=== PATIENT | male | born 1945 ===

== ENCOUNTER 2019-12-15 17:23 | Inpatient (IN) | payer MEDICARE, MEDICAID, OTHER ==
[~2019-12-15 17:23] MED LIST: Iopamidol-370 76% 500 ML 1 ML ONE
[2019-12-15 18:07] LABS: #Eosinphils 0.1 thou/uL (0.0-0.7); #Monocytes 0.5 thou/uL (0.11-0.59); #Neutrophils 9.5 thou/uL (1.40-6.50); %Basophils 0.2 % (0.0-1.0); %Eosinophils 0.6 % (0.0-10.0); %Lymphocytes 8.7 % (21.0-51.0); %Monocytes 4.8 % (0.0-10.0); %Neutrophils 85.9 % (42.0-75.0); Hemoglobin 9.5 g/dL (14.0-18.0); Mean Corpuscular HGB CONC 31.9 g/dL (32.0-36.0); Mean Corpuscular Hemoglobin 31.6 pg (27.0-31.0); Mean Corpuscular Volume 98.9 fL (78.0-98.0); Mean Platelet Volume 8.7 fL (7.4-10.4); Platelet Count 253 thou/uL (130-400); RBC Distribution Width 14.6 % (11.5-14.5); Red Blood Cell (RBC) Count 3.01 mill/uL (4.70-6.10); White Blood Cell (WBC) Count 11.1 thou/uL (4.8-10.8)
[2019-12-15] MEDS ORDERED: Cefepime 2 GM VIAL ONE (18:12)
[2019-12-15] MEDS ORDERED: Vancomycin 1 GM/200 ML BAG ONE (18:12)
[2019-12-15 18:45] LABS: PTT 190.9 SEC (22.9-36.1); Prothrombin Time Greater than 150.0 SEC (12.0-14.7)
[2019-12-15 18:55] LABS: CKMB 0.8 ng/mL (0-6.6)
[2019-12-15] MEDS ORDERED: ADMIXTURE FEE IV SCH ×2 (19:30→22:00)
[2019-12-15] MEDS ORDERED: HUMAN PROTHROMBIN COMPLX IV SCH ×2 (19:30→22:00)
--- NOTE | 2019-12-15 19:30 | RAD ---
SINGLE VIEW OF THE CHEST: 12/15/19 COMPARISON: None. HISTORY: Left arm swelling. Dialysis graft in that arm. FINDINGS: Single view of the chest shows the cardiomediastinal silhouette which is upper limits of normal in si ze. A triple lead pacemaker is seen with its leads in the right atrium and right ventricle and arciniega ry sinus. Opacity is seen in the right lung apex which may represent scarring or collapse of the righ t upper lobe. There is volume loss in this location. Increased interstitial lung markings are present . No pleural effusion is seen. Changes are seen involving the bone of the proximal aspect of the left humerus which are nonspecific. An underlying fracture cannot be entirely excluded. IMPRESSION: 1. Chronic interstitial lung disease. 2. Right upper lobe opacification may represent scarring or atelectasis. A superimposed infiltra te cannot be excluded. 3. Abnormal appearance of the proximal left humerus. This may represent correction dialysis rojas es. An underlying fracture is also a possibility. Correlate with point tenderness of the left shoulde r. POS: [facility]
--- NOTE | 2019-12-15 19:30 | ULT ---
ULTRASOUND DOPPLER DUPLEX VENOUS LEFT UPPER EXTREMITY: DATE: 12/15/2019 HISTORY: 74-year-old male with left upper extremity edema TECHNIQUE: Grayscale, color-flow, and spectral analysis, of the vessels of left upper extremity. FINDINGS: There is demonstration of blood flow, with no evidence of thrombosis of the left internal jugular, nava bclavian, axillary, brachial, basilic, radial, and ulnar, veins. Brachial, radial, and ulnar arteries are patent. The anastomosis between the brachial artery and cephalic vein is patent. Cephali c vein and subclavian vein are dilated, as expected. IMPRESSION: Left upper extremity hemodialysis arteriovenous fistula is patent, no evidence of thrombosis.
[2019-12-15 19:32] LABS: ALT (SGPT) 16 U/L (8-55); AST (SGOT) 25 U/L (5-34); Albumin 3.1 g/dL (3.4-4.8); Alkaline Phosphatase 520 U/L (40-110); Anion Gap 23 mmol/L (10-20); BUN (Urea Nitrogen) 46 mg/dL (8.4-25.7); Bilirubin, Total 1.5 mg/dL (0.2-1.2); Calc. Creatinine Clearance 0 mL/min (70-130); Calcium 9.3 mg/dL (7.8-10.44); Carbon Dioxide 28 mmol/L (23-31); Chloride 87 mmol/L (98-107); Estimated GFR-MDRD 9; Globulin 4.5 g/dL (2.4-3.5); Glucose 352 mg/dL (83-110); Protein, Total 7.6 g/dL (5.8-8.1); Sodium 134 mmol/L (136-145)
[2019-12-15] MEDS ORDERED: Ketamine 50 MG/ML (10ML VIAL) ONE (19:54)
[2019-12-15] MEDS ORDERED: Vecuronium 10 MG VIAL ONE (19:54)
[2019-12-15 20:06] LABS: Bilirubin Small (Negative); Blood, Urine Large (Negative); Glucose, Urine (Dipstick) Negative (Negative); Leukocyte Large (Negative); Nitrite Negative (Negative); Protein, Urine (Dipstick) > or equal to 300 mg/dL (Neg-Trace); Urobilinogen 0.2 mg/dL (Less than 2)
[2019-12-15 20:08] LABS: Clarity Turbid (Clear)
[2019-12-15 20:11] LABS: WBC/HPF Greater Than 50 HPF (0-3)
[2019-12-15 20:12] LABS: Bacteria/HPF 4+ HPF (None Seen); Squamous Epithelial None Seen HPF (0-3)
[2019-12-15] MEDS ORDERED: Propofol 1,000 MG/100 ML VIAL IV ONE ×2 (20:18→20:32)
[2019-12-15] MEDS ORDERED: Propofol 1,000 MG/100 ML VIAL IV PRN ×2 (20:22→21:13)
[2019-12-15] MEDS ORDERED: fentaNYL Citrate/PF 2,000 MCG in Sodium Chloride 0.9% 60 ML IV SCH (20:23)
[2019-12-15] MEDS ORDERED: Propofol 500 MG/50 ML VIAL ONE (20:31)
--- NOTE | 2019-12-15 20:41 | RAD ---
RADIOGRAPH CHEST 1 VIEW: DATE: 12/15/2019 TIME: 8:00 PM HISTORY: 74-year-old male status post intubation COMPARISON: 12/15/2019 6:41 PM FINDINGS: New ETT, distal tip 2.5 similar superior to jonny. New tube traveling down the esophagus and into left upper quadrant, distal tip outside of field of vi ew. No other interval change. Dense severe opacification of right lung apex, with traction deviation of trachea to the right indica ting volume loss of right apex. Diffuse bilateral nodular interstitial infiltrates. Multilead left subclavian AICD. IMPRESSION: 1. Status post intubation with endotracheal tube. 2. Status post placement of esophagogastric tube. 3. No other interval change.
[2019-12-15] MEDS ORDERED: Ventilator Sedation Protocol 1 EACH FS ONE (20:57)
[2019-12-15] MEDS ORDERED: Acetaminophen 325 MG Suppository PR PRN (20:57)
[2019-12-15] MEDS ORDERED: Sodium Chloride 0.9% 1,000 ML IV SCH (21:00)
[2019-12-15] MEDS ORDERED: Ventilator Sedation Protocol 1 EACH FS SCH (21:00)
[2019-12-15 21:01] LABS: INR-International Normal Ratio 2.7; Prothrombin Time 28.6 SEC (12.0-14.7)
[2019-12-15] MEDS ORDERED: Propofol BOLUS 1,000 MG/100 ML VIAL IV PRN (21:13)
[2019-12-15] MEDS ORDERED: Lorazepam 2 MG/ML VIAL SLOW IVP PRN (21:13)
[2019-12-15] MEDS ORDERED: Fentanyl BOLUS 250 ML IVPB PRN (21:13)
[2019-12-15] MEDS ORDERED: DISCONTINUE PREVIOUS NARCOTIC PAIN MEDICATIONS AND BENZODIAZEPINES FS SCH (21:13)
[2019-12-15] MEDS ORDERED: Morphine 2 MG/ML SYRINGE SLOW IVP PRN (21:13)
[2019-12-15] MEDS ORDERED: HOLD VANCOMYCIN FOR LEVEL >20 FS SCH (21:30)
[2019-12-15] MEDS ORDERED: Vancomycin HCl 250 MG in Sodium Chloride 0.9% 100 ML IVPB SCH (21:30)
[2019-12-15] MEDS ORDERED: Vancomycin HCl 750 MG in Sodium Chloride 0.9% 250 ML 250 ML IVPB SCH (21:30)
[2019-12-15] MEDS ORDERED: Vancomycin HCl 500 MG in Sodium Chloride 0.9% 100 ML IVPB SCH (21:30)
[2019-12-15] MEDS ORDERED: Vancomycin 1 GM in Premix Bag 1 BAG IVPB SCH (21:30)
[2019-12-15] MEDS ORDERED: Phytonadione 10 MG/ML AMP ONE (21:42)
--- NOTE | 2019-12-15 21:44 | CON ---
DATE OF CONSULTATION: 12/15/2019 CONSULTING PHYSICIAN: Dr. Street from ER. REASON FOR CONSULTATION: End-stage renal disease evaluation. REASON FOR ADMISSION: Fever. HISTORY OF PRESENT ILLNESS: This is a 74-year-old male with history of end-stage renal disease, coronary artery disease, diabetes, and hypertension, came to the hospital with the above complaints and is being evaluated and being admitted to the hospital. He was actually intubated in the ER because of the aspiration and shortness of breath. The patient had fever and was seen in the hospital. The patient gets dialysis Friday, , and Friday at [facility] and is due for dialysis tomorrow. PAST MEDICAL HISTORY: Positive for end-stage renal disease, diabetes, hyperlipidemia, hypertension, cardiomyopathy, and coronary artery disease. PAST SURGICAL HISTORY: Dialysis access placement, right knee surgery, AICD and fistula placement. HOME MEDICATIONS: Reviewed. ALLERGIES: NO KNOWN DRUG ALLERGIES. SOCIAL HISTORY: No alcohol or illicit drug abuse. No smoking history. FAMILY HISTORY: No history of kidney disease. REVIEW OF SYSTEMS: Could not be obtained. PHYSICAL EXAMINATION: GENERAL: Reveals a well-built male, intubated. VITAL SIGNS: Reviewed. LABORATORY DATA: Hemoglobin is 9.5, potassium 4.0, BUN is 46, and creatinine is 6.08. Chest x-ray with signs of fluid overload and respiratory distress. ASSESSMENT AND PLAN: 1. End-stage renal disease with possible fluid overload. He is on hemodialysis TTS schedule. 2. Edema. 3. Fluid overload with respiratory distress. 4. History of hypertension. 5. Hyponatremia. 6. Chronic anemia. 7. IC bleed with herniation - high risk for dialysis. Thank you for the consult. Job ID: [id number] [facility]
--- NOTE | 2019-12-15 21:45 | CT ---
CT BRAIN NONCONTRAST: DATE: 12/15/2019 9:26 PM HISTORY: 74-year-old male on anticoagulation therapy medication presents with altered mental status and genera lized weakness. Dr. Walsh discussed the findings by telephone with Dr. Street at 9:37 PM 12/15/2019 COMPARISON: none FINDINGS: There is a large multiloculated left frontotemporal parietal subdural hematoma with hyperdense and hy podense components. There is a large amount of subarachnoid hemorrhage throughout left cerebral sulci. There is a large left temporal lobe hematoma measuring approximately 5 x 3.5 cm. The anterior half of it is hypodense, suggesting possible hyperacute hemorrhage, while the posterior portion is hyperdense. Severe right to left midline shift of the septum pellucidum by 17 mm. Lateral ventricles bilaterally are severely distorted and narrowed, except for the body of the right lateral ventricle and the bilateral temporal horns, which are dilated. Third ventricle is completely effaced. Fourth ventricle is normal. Ambient cistern is completely effaced. Bilateral uncal herniation, left worse than right. Prepontine cistern is partially effaced. No cerebe llar tonsillar herniation. No displaced calvarial fracture. IMPRESSION: 1. Large volumes of, acute left supratentorial subdural, subarachnoid, and intra-axial (parenchymal) hemorrhage. 2. Severe mass effect: Severe subfalcine herniation, and bilateral uncal herniation.
--- NOTE | 2019-12-15 22:10 | HP ---
CT Brain: Massive intracranial Bleed Seen by neurosurgery, Inoperable,, terminal Neurosurgery will discuss with family CHIEF COMPLAINT: Fever and left arm swelling. HISTORY OF PRESENT ILLNESS: Mr. Maurice is a 74-year-old male with past medical history of end-stage renal disease on hemodialysis Friday, , and Friday. Had dialysis on 12/14/2019, presents to the emergency room with generalized weakness, has been progressing over the last week. The patient has been feeling increasingly weak to the point that he is not able to walk. No reported sick contacts. The patient lives with his spouse and grandson. 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 He also initially reported mild dyspnea without cough. Apparently, this happened approximately eight months ago when the patient was seen at [facility] and diagnosed with some problem with the pacemaker wires. The grandson reported that the patient takes blood thinner warfarin. Workup in the emergency room initially, the patient had fever of 101.1. INR was more than 150. While in the emergency room, the patient started vomiting and became hypoxic and in respiratory distress, the reason for which patient was intubated and mechanically ventilated. Currently, patient is going for CT of the brain and abdomen, results are not available. Lab work; the patient was found to have urinary tract infection. Venous Doppler of the left upper extremity, arteriovenous fistula is patent. No evidence of thrombosis. Lactic acid initially was 4.2. WBC count is 11.1. Hemoglobin 9.5. Platelets 253. Septic workup done in the ED. Started on IV antibiotics for possible cellulitis of the left upper extremity and also urinary tract infection. ED physician consulted with patient's farm demonstrator, who they can arrange for hemodialysis. The patient is being admitted to the intensive care unit for further management. Also as per ER physician, viral panel was sent including COVID-19 because of fever and sepsis. PAST MEDICAL HISTORY: Significant for; 1. End-stage renal disease, on hemodialysis. 2. Diabetes mellitus, type 2. 3. Hyperlipidemia. 4. Hypertension. PAST SURGICAL HISTORY: Unable to obtain. The patient is intubated and mechanically ventilated. SOCIAL HISTORY: As per records. No history of alcohol abuse or drug use. No smoking history. ALLERGIES: NO KNOWN ALLERGIES. CURRENT MEDICATIONS: Include warfarin. For details, please see home medication reconciliation form for updated medications. REVIEW OF SYSTEMS: Unable to obtain. The patient is intubated, mechanically ventilated, and sedated. PHYSICAL EXAMINATION: GENERAL: The patient is intubated, mechanically ventilated, and sedated. VITAL SIGNS: Blood pressure 129/64, pulse is 69, respiratory rate is 16, oxygen saturation is 98% on ventilator, temperature was 101.1. HEAD AND NECK: Normocephalic, atraumatic. NECK: Supple. CHEST: Coarse bilateral breath sounds. HEART: S1, S2. Regular, positive for murmur. ABDOMEN: Soft, nontender. Bowel sounds present. EXTREMITIES: Left upper extremity is edematous, diffusely warm and erythematous. Radial pulse is palpable. NEURO: Unable to assess. The patient is intubated, mechanically ventilated. SKIN: Erythema to the left arm as described above. LABORATORY DATA: As mentioned above in the history of present illness. IMAGING STUDIES: As mentioned above in the history of present illness. ASSESSMENT: 1. Acute hypoxic respiratory failure. 2. Pneumonia? aspiration. 3. Sepsis. 4. Cellulitis of left upper extremity. 5. Coagulopathy/supratherapeutic INR. 6. End-stage renal disease, on hemodialysis. 7. Acute urinary tract infection. 8. Detectable troponin. 9. Diabetes mellitus, type 2. CT Brain: Massive intracranial Bleed Seen by neurosurgery, Inoperable,, terminal Neurosurgery will discuss with family PLAN: 1. Admit to the ICU. 2. Continue full ventilator support. 3. CT of the brain and abdomen being done to follow the results. 4. Septic workup including blood cultures, viral panel and COVID-19 testing were done in the ED. 5. IV antibiotics. Continue with cefepime and vancomycin for now. 6. Sister Superior consulted for need for hemodialysis. 7. The patient was given Kcentra in the ED for elevated INR. 8. Consult Pulmonary/Critical Care for critical care management. 9. Reconcile home medications. 10. DVT prophylaxis as appropriate. 11. GI prophylaxis. 12. Expected length of stay 3 midnights or more. 13. Patient's condition is critical. CT Brain: Massive intracranial Bleed Seen by neurosurgery, Inoperable,, terminal Neurosurgery will discuss with family Job ID: [id number] [facility]
--- NOTE | 2019-12-15 22:33 | CT ---
CT ABDOMEN WITH CONTRAST CT PELVIS WITH CONTRAST: DATE: 12/15/2019 9:30 PM HISTORY: 74-year-old male on anticoagulation therapy presents with abdominal pain and severely elevated INR. C oncern for intra-abdominal or intrapelvic hemorrhage. COMPARISON: None TECHNIQUE: IV injection of iodinated contrast media: administered. Oral contrast media:Not administered FINDINGS: Kidneys are bilaterally very atrophic. No hydronephrosis. Small bilateral pleural effusions. Airspace density at posterior base of right lower lobe abutting the pleural effusion could represent atelectasis, or aspiration pneumonia. Interstitial changes throughout the bilateral lung bases probab ly represent mild pulmonary interstitial edema. Edema throughout the subcutaneous fat circumferentially around the abdominal cavity and pelvis Diffuse mural thickening and mural edema of the gallbladder. No intrahepatic biliary ductal dilation or obvious mass within the liver. Esophagogastric tube distal tip in proximal stomach. No retroperitoneal hematoma. Small amount of free fluid around the inferior portion of right lobe of liver and small to moderate amount of free fluid within pelvic cavity. Amaya catheter within collapsed urinary bladder with thick toure. Extensive atherosclerotic calcific aeration of most arteries. No small bowel dilation. Unremarkable spleen, pancreas, and adrenals. Retrocecal appendix is probably not inflamed primarily. Mild edema throughout the mesentery. No pneumoperitoneum. IMPRESSION: 1. No retroperitoneal or intrapelvic hematoma. 2. Small volume of ascites. 3. Anasarca. 4. Small bilateral pleural effusions. 5. Right lower lobe pulmonary densities could represent aspiration pneumonitis. 6. Evidence for chronic renal failure: Renal atrophy. 7. Diffuse mural thickening and mural edema of the gallbladder. Possible etiologies include secondary involvement due to liver disease, versus acute cholecystitis.
--- NOTE | 2019-12-16 00:12 | CON ---
DATE OF CONSULTATION: 12/15/2019 This was a 50-minute initial consult visit in which greater than 50% of the time was spent in review of records, imaging, evaluation, examination, and formulation of plan. The remaining time was spent in counseling and coordination of care. CHIEF COMPLAINT: Altered mental status with left-sided brain hemorrhage. HISTORY OF PRESENT ILLNESS: Mr. Maurice is a 74-year-old male who presented to the emergency department earlier this evening. All history was obtained from the ER physician, Dr. Street, as the patient was intubated on a ventilator and unresponsive upon my arrival to the ER for evaluation. Per report , the patient presented with generalized weakness that has been worsening over the last several days. The patient no longer able to ambulate due to this weakness. The patient was reported to initially be answering questions appropriately in [place] Translation was provided by his grandson, who reported that at times the patient was unable to be understood due to garbled speech. However, most of the time, speech was understandable and inappropriate. The patient did appear somnolent, but was easily awakened. As the evening progressed, the patient had an episode of vomiting and became hypoxic with respiratory distress, suspicion for aspiration. The patient was intubated and placed on ventilator. The patient was then taken for a CT of the brain, which unfortunately revealed a massive left- sided hemorrhage with severe mass effect with [id number] midline shift and uncal herniation. PAST MEDICAL HISTORY: Pertinent for end-stage renal disease, on hemodialysis. Last dialysis on 12/14/2019 (yesterday). On initial coags, INR was unable to be calculated, and PT was greater than 150. The patient received Kcentra, and second set of coags revealed INR 2.7 and PT of 28.6. There is concern for sepsis, as the patient has left arm cellulitis. White blood cell count 11.1. Urinalysis consistent with urinary tract infection with large amount of leukocyte esterase, greater than 50 urine white blood cells, and 4+ urine bacteria. The patient was started on IV antibiotics. Additional medical history is significant for type 2 diabetes mellitus, hyperlipidemia, and hypertension. PHYSICAL EXAMINATION: The patient is intubated on a ventilator and sedated. GCS of 3t upon my arrival for examination. Pupils are in mid position, dilated, and nonreactive. 0/5 strength throughout all extremities, flaccid and no withdrawal to painful stimulus. There is left upper extremity swelling present with warmth and erythema. IMPRESSION: 1. Massive left-sided brain hemorrhage, including left supratentorial subdural hematoma, subarachnoid hematoma, and intraparenchymal hemorrhage with significant mass effect and uncal herniation. 2. Acute hypoxic respiratory failure. 3. Sepsis. 4. Cellulitis of left upper extremity. 5. Coagulopathy/supratherapeutic INR. 6. End-stage renal disease, on hemodialysis. 7. Acute urinary tract infection. 8. Diabetes mellitus type 2. 9. Hyperlipidemia. 10. Hypertension. PLAN: Case was discussed and imaging reviewed with Dr. Guerrero. CT of his brain is significant for massive left-sided brain hemorrhage of multiple types including multiloculated left frontotemporal parietal subdural hematoma with hyperdense and hypodense components, large subarachnoid hemorrhage, large left temporal lobe intraparenchymal hematoma. There is presence of signs which is suggestive of hyperacute bleeding at the time of CT completed. There is severe left to right midline shift measuring approximately 17 mm. There is bilateral uncal herniation present, left greater than right. Given these unfortunate findings on imaging, at this time the patient's intracranial hemorrhage is nonsurvivable and no surgery is recommended at this time. This is reinforced given the patient's coagulopathy, advanced age, and multiple medical comorbidities that make this inoperable that will unfortunately be fatal for this patient. The patient's family is currently on their way to the hospital at this time. I will discuss the finding with them upon their arrival and explain that no surgery will be pursued. The patient has been admitted to the critical care unit. Advised that he receive comfort care. Our team will continue to follow the patient while he remains in the hospital. Call Neurosurgery with any questions or concerns. Job ID: [id number] [facility]
[2019-12-16] MEDS ORDERED: Dextrose 5% in Water 1,000 ML IV PRN (00:30)
[2019-12-16] MEDS ORDERED: Dextrose 50% Abboject 50 ML SYRINGE SLOW IVP PRN (00:30)
[2019-12-16] MEDS ORDERED: HumaLOG 300 UNITS/3 ML VIAL SC PRN (00:30)
[2019-12-16 01:11] LABS: HBSAg Index 0.16 S/CO (0-0.99); Hep B Surf Ag Non-Reactive S/CO (NonReactive)
[2019-12-16 04:58] LABS: INR-International Normal Ratio 1.6; Prothrombin Time 19.2 SEC (12.0-14.7)
[2019-12-16 05:05] LABS: Band 9 % (5-11); Hemoglobin 8.3 g/dL (14.0-18.0); Lymphocytes 6 % (21-51); MDiff Complete? YES; Mean Corpuscular HGB CONC 33.4 g/dL (32.0-36.0); Mean Corpuscular Hemoglobin 32.3 pg (27.0-31.0); Mean Corpuscular Volume 96.8 fL (78.0-98.0); Mean Platelet Volume 9.9 fL (7.4-10.4); Monocytes 5 % (0-10); Neutrophil 80 % (42-75); Platelet Count 191 thou/uL (130-400); RBC Distribution Width 14.8 % (11.5-14.5); Red Blood Cell (RBC) Count 2.55 mill/uL (4.70-6.10); White Blood Cell (WBC) Count 15.1 thou/uL (4.8-10.8)
[2019-12-16] MEDS: HumaLOG 300 UNITS/3 ML VIAL SC PRN ×3 (06:09→18:10)
[2019-12-16 07:13] LABS: #Basophils 0.2 thou/uL (0.0-0.2); #Lymphocytes 0.4 thou/uL (1.20-3.40); #Monocytes 0.5 thou/uL (0.11-0.59); #Neutrophils 15.2 thou/uL (1.40-6.50); %Basophils 1.1 % (0.0-1.0); %Eosinophils 0.1 % (0.0-10.0); %Lymphocytes 2.6 % (21.0-51.0); %Monocytes 2.9 % (0.0-10.0); %Neutrophils 93.2 % (42.0-75.0); Hemoglobin 8.6 g/dL (14.0-18.0); Mean Corpuscular HGB CONC 33.2 g/dL (32.0-36.0); Mean Corpuscular Hemoglobin 32.1 pg (27.0-31.0); Mean Corpuscular Volume 96.6 fL (78.0-98.0); Mean Platelet Volume 8.8 fL (7.4-10.4); Platelet Count 199 thou/uL (130-400); RBC Distribution Width 14.5 % (11.5-14.5); Red Blood Cell (RBC) Count 2.67 mill/uL (4.70-6.10); White Blood Cell (WBC) Count 16.3 thou/uL (4.8-10.8)
[2019-12-16 07:36] LABS: ALT (SGPT) 12 U/L (8-55); AST (SGOT) 16 U/L (5-34); Albumin 2.6 g/dL (3.4-4.8); Alkaline Phosphatase 379 U/L (40-110); Anion Gap 18 mmol/L (10-20); BUN (Urea Nitrogen) 50 mg/dL (8.4-25.7); Bilirubin, Total 1.7 mg/dL (0.2-1.2); Calc. Creatinine Clearance 9 mL/min (70-130); Calcium 8.6 mg/dL (7.8-10.44); Carbon Dioxide 27 mmol/L (23-31); Chloride 89 mmol/L (98-107); Estimated GFR-MDRD 9; Globulin 3.9 g/dL (2.4-3.5); Glucose 333 mg/dL (83-110); Protein, Total 6.5 g/dL (5.8-8.1); Sodium 130 mmol/L (136-145)
[2019-12-16 08:31] LABS: Actual Bicarbonate (HCO3a) 31.6 mEq/L (22-28); Base Excess (BEa) 7.6 mEq/L (-2.0 to +3.0); CO2 Tension 41.9 mmHg (35.0-45.0); Calcium, Ionized 1.07 mmol/L (1.12-1.30); Carboxyhemoglobin (COHb) 1.6 gm% (0.0-3.0); Hemoglobin (Hb) 9.1 g/dL (14.0-18.0); O2 Tension (PaO2) 176.7 mmHg (> 70.0)
[2019-12-16 08:34] LABS: Puncture Site RB
[2019-12-16 08:35] LABS: ALV-art Gradient 127.425 (0-20)
--- NOTE | 2019-12-16 10:12 | CON ---
DATE OF CONSULTATION: 12/16/2019 TIME SPENT: 35 minutes of critical care time. REASON FOR CONSULTATION: Acute respiratory failure. HISTORY OF PRESENT ILLNESS: This is a 74-year-old male, who was admitted with fever, left arm swelling, and altered mental status. He has been found to have a large left-sided subdural hematoma with midline shift and has been deemed inoperable by Neurosurgery. Because of his fever, he was put in rule out COVID-19 status. Because of his altered mental status, he was intubated. PAST MEDICAL HISTORY: 1. He is an end-stage renal disease patient on 3 times weekly hemodialysis. 2. Diabetes mellitus, type 2. 3. Hyperlipidemia. 4. Hypertension. PAST SURGICAL HISTORY: Not known at the current time, but he does have a left upper arm AV fistula in place. SOCIAL HISTORY: Does not smoke. ALLERGIES: NONE. MEDICATIONS: Prior to admission; 1. Flomax. 2. Simvastatin. 3. Sevelamer. 4. Metoprolol. 5. Lisinopril. 6. Isosorbide. 7. Aspirin. 8. Warfarin was also mentioned in the history. Current inpatient medications; 1. Cefepime. 2. Famotidine. 3. Fentanyl. 4. Propofol. 5. Morphine. 6. Vancomycin. REVIEW OF SYSTEMS: Cannot be obtained as the patient is intubated. PHYSICAL EXAMINATION: VITAL SIGNS: Temperature is 97.0, pulse 70, and blood pressure 138/75. GENERAL: The patient is intubated. I can get him to withdrawal with his lower extremities to deep stimulation. HEENT: Pupils are 3 mm, reactive. Sclerae are anicteric. Oropharynx; ET tube in place. NECK: No adenopathy or JVD. CHEST: Clear without wheezing or rhonchi. CARDIOVASCULAR: S1 and S2. Regular. He has an audible 3/6 systolic murmur. ABDOMEN: Soft and nontender. EXTREMITIES: He has a left upper arm AV fistula. He has swelling in that region. IMAGING DATA: His chest x-ray demonstrates a right upper lobe opacity, which may be chronic, although I do not have old films for comparison. This could also be atelectasis from endobronchial obstruction. He has interstitial changes throughout both lungs. He has a pacemaker/defibrillator. ET tube looks to be in good position. The trachea is slightly deviated to the right, but this is probably chronic given the changes seen on x-ray. LABORATORY DATA: Sodium 130, potassium 4, chloride 89, CO2 of 27, BUN 50, creatinine 6.3, glucose 333, and calcium 8.6. INR is 1.6. White blood cell count 16.3, hematocrit 25.8, and platelet count 199. ABG; pH of 7.50, pCO2 of 41, pO2 of 176 on SIMV rate 14, tidal volume 450, PEEP 5, pressure support 10, and FiO2 of 50%. ASSESSMENT: 1. Large intracranial bleed/subdural bleed, which has been deemed inoperable and terminal by Neurosurgery. 2. Acute respiratory failure, requiring mechanical ventilation. 3. Chronic renal failure, requiring hemodialysis. 4. Right upper lobe atelectasis versus chronic changes. RECOMMENDATIONS: Given that this illness is not survival, I would recommend consulting with family and discuss code status and consider terminal extubation. I doubt this is a COVID-19 case, but he will need to remain in isolation until the test comes back. Job ID: [id number]
[2019-12-16] MEDS: Famotidine/PF 20 mg/2ml Vial SLOW IVP SCH (10:18)
--- NOTE | 2019-12-16 10:31 | PRG ---
DATE OF SERVICE: 12/16/2019 SUBJECTIVE: Willi Maurice is a 74-year-old man, who evidently fell few days ago. He is on Coumadin and has significant comorbidities such as hemodialysis dependence and is also on Coumadin. His Coumadin level when he came in was supratherapeutic with a PT greater than 150. Head CT following a rapid decline demonstrated a very large acute subdural hematoma in the left hemisphere with hyperacute and acute bleeding, significant midline shift. This is a bleed that is incompatible with life. We discussed with the patient's family, his moribund exam and rapid deterioration along with his medical comorbidities and age are very poor prognostic criteria. We have recommended against any surgical intervention. On our exam last night, he was intubated, sedated with a GCS of 3T and midposition fixed pupils. This morning, this remains the case, although he does have some leg movement that our nurses have noticed which is likely triple flexion. There is no role for neurosurgical intervention. There is one large left acute hyperacute subdural hematoma, status post fall on anticoagulation. Job ID: [id number]
--- NOTE | 2019-12-16 14:19 | PRG ---
DATE OF SERVICE: 12/16/2019 SUBJECTIVE: The patient was seen in ICU. He remains in isolation for COVID-19. OBJECTIVE: GENERAL: Elderly male, in ICU and intubated in COVID isolation. VITAL SIGNS: Reviewed. Temperature 97.3, pulse 78, respiratory rate 14, blood pressure 150/78. LABORATORY DATA: Potassium 4.0, BUN is 50, and creatinine 6.3. ASSESSMENT AND PLAN: 1. End-stage renal disease, on hemodialysis. 2. Severe intracranial bleed with herniation. 3. Edema. 4. Fluid overload. 5. History of hypertension, hyponatremia. 6. Chronic anemia. The patient is deemed terminally ill by Neurosurgery and the team is waiting for family decision for the clarification of goals of care. No indication for dialysis at this point. We will follow. Job ID: [id number]
--- NOTE | 2019-12-16 16:12 | PDOC.EVN ---
Event Note - Event Note Event Note: Patient seen from distance since COVID testing pending and ICU already evaluated patient. Patient noted to have subdural hemorrhage, uncal herniation. Neurosurgery has stated no intervention. Patient also requiring dialysis but nephrology won't do dialysis either currently PE per chart review: Gen: patient intubated Neuro: patient withdraws lower extremities to command CV: patient has murmur systolic. Lungs: clear per nursing staff Extremities: swelling LUE arm Labs: Sodium 130, INr 1.6, ABG : pH 7.60, PCO2 of 41, CXR: chronic interstitial lung disease. Possible left humerus fracture? Possible RUL infiltrate Doppler US: left upper extremity fistula, no thrombosis Chest X ray: no interval change, s/p extubation CT abdomen: small bilateral pleural effusions. Aspiration pneumonia RLL. Diffuse mural thickening and edema of gallbladder. Anasarca. Small volume ascites CT brain: large volume of acute left supratentorial, subdural, subarachonid and intra-axial hemorrhage. Severe subfalcine herniation, bilateral uncal herniation This is 74 year old male who presented with severe intracranial hemorrhage and fever. #Acute Intracranial hemorrhage #Acute hypoxic respiratory failure secondary to sepsis from pneumonia vs gram negative UTI vs chronic interstitial lung disease #RUL pneumonia #Hyponatremia #ESRD #Leukocytosis #ANemia - on vanc and cefepime. COVID test pending. - pt has poor prognosis due to herniation. No surgical treatment per neurosurgery. Not candidate for dialysis. Consider terminal extubatio once COVID testing comes back
[2019-12-16] MEDS: Cefepime 0.5 GM, Admixture Fee 1 EACH in Sodium Chloride 0.9% 100 ML IVPB SCH (17:36)
[2019-12-16] MEDS ORDERED: Vancomycin 1 GM in Premix Bag 1 BAG IVPB SCH (21:00)
[2019-12-17 04:31] LABS: #Eosinphils 0.3 thou/uL (0.0-0.7); #Lymphocytes 0.7 thou/uL (1.20-3.40); #Monocytes 0.6 thou/uL (0.11-0.59); #Neutrophils 13.2 thou/uL (1.40-6.50); %Basophils 0.1 % (0.0-1.0); %Eosinophils 1.8 % (0.0-10.0); %Lymphocytes 4.6 % (21.0-51.0); %Monocytes 4.3 % (0.0-10.0); %Neutrophils 89.2 % (42.0-75.0); Hemoglobin 8.3 g/dL (14.0-18.0); Mean Corpuscular HGB CONC 31.9 g/dL (32.0-36.0); Mean Corpuscular Hemoglobin 31.1 pg (27.0-31.0); Mean Corpuscular Volume 97.4 fL (78.0-98.0); Mean Platelet Volume 8.3 fL (7.4-10.4); Platelet Count 240 thou/uL (130-400); RBC Distribution Width 14.5 % (11.5-14.5); Red Blood Cell (RBC) Count 2.67 mill/uL (4.70-6.10); White Blood Cell (WBC) Count 14.7 thou/uL (4.8-10.8)
[2019-12-17 04:54] LABS: Anion Gap 17 mmol/L (10-20); BUN (Urea Nitrogen) 56 mg/dL (8.4-25.7); Calc. Creatinine Clearance 9 mL/min (70-130); Carbon Dioxide 32 mmol/L (23-31); Chloride 93 mmol/L (98-107); Estimated GFR-MDRD 8; Glucose 116 mg/dL (83-110); Potassium 3.5 mmol/L (3.5-5.1); Sodium 138 mmol/L (136-145)
[2019-12-17 05:57] LABS: Manual Diff?? YES
[2019-12-17 06:09] LABS: Band 15 % (5-11); Eosinophils 3 % (0-10); Lymphocytes 7 % (21-51); Monocytes 4 % (0-10)
[2019-12-17 07:02] LABS: Actual Bicarbonate (HCO3a) 33.2 mEq/L (22-28); Base Excess (BEa) 10.9 mEq/L (-2.0 to +3.0); CO2 Tension 35.5 mmHg (35.0-45.0); Calcium, Ionized 1.12 mmol/L (1.12-1.30); Carboxyhemoglobin (COHb) 1.4 gm% (0.0-3.0); Hemoglobin (Hb) 11.5 g/dL (14.0-18.0); O2 Tension (PaO2) 99.6 mmHg (> 70.0); Potassium - ABG Lab 3.47 mmol/L (3.70-5.30)
[2019-12-17 07:24] LABS: ALV-art Gradient 141.225 (0-20); Puncture Site RBRACH; pH, Arterial 7.59 (7.35-7.45)
--- NOTE | 2019-12-17 07:44 | RAD ---
EXAM: Portable chest PROVIDED CLINICAL HISTORY: Respiratory insufficiency COMPARISON: 12/15/2019 FINDINGS: Significant interval change with respect to the prior examination is not apparent. IMPRESSION: As above.
--- NOTE | 2019-12-17 08:00 | PRG ---
DATE OF SERVICE: 12/17/2019 35 minutes critical care time. SUBJECTIVE: The patient remains intubated on mechanical ventilation. There has been no acute changes overnight. OBJECTIVE: VITAL SIGNS: Temperature 95.5, pulse 70, blood pressure 125/59, 24-hour intake 100 and output 54. NEUROLOGIC: I can get him to move his left foot , but I cannot get him to move anything else, not respond to voice. spontaneous respirations because he was very alkalotic on his blood gas this morning, but I have turned down his rate. LUNGS: Clear. CARDIAC: S1, S2. Regular. ABDOMEN: Soft. EXTREMITIES: No edema. LABORATORY DATA: White blood cell count 14, hematocrit 26, platelet count 240. pH was 7.59, pCO2 of 35, and pO2 of 99 on SIMV rate 14, tidal volume 450, PEEP 5, pressure support 15, FiO2 40%. Sodium of 130, potassium 3.5, chloride 93, CO2 of 32, BUN 56, creatinine 6.9, and glucose 116. Chest x-ray shows no acute change. He still has the right apical chronic changes. ASSESSMENT: 1. Intracranial bleed/subdural hematoma, thought inoperable. 2. Moribund neurologic status. 3. Chronic renal failure. 4. Respiratory failure, requiring mechanical ventilation. PLAN: We are awaiting the COVID-19 rule out test. I spoke with the patient's son on the phone. They would like to come up and see him before making a decision about extubating him and letting him go. I have changed his ventilatory settings. He is being warmed. Unfortunately, I do not think any other interventions are going to make any difference. I would recommend palliative care involvement and the family does not agree with DNR. Job ID: [id number]
[2019-12-17] MEDS: Famotidine/PF 20 mg/2ml Vial SLOW IVP SCH (08:30)
[2019-12-17] MEDS ORDERED: Norepinephrine 8 MG/0.9% NS 250 ML IVPB SCH (12:45)
--- NOTE | 2019-12-17 13:00 | PRG ---
DATE OF SERVICE: SUBJECTIVE: The patient is in ICU and talked with bedside nurse. OBJECTIVE: GENERAL: This is an elderly male, intubated. VITAL SIGNS: Temperature 95.5. Heart rate 70. Respiratory rate 14. Blood pressure 78/47. HEENT: Intubated. LABORATORY DATA: Potassium 3.5, BUN is 66, and creatinine 6.9. ASSESSMENT AND PLAN: 1. End-stage renal disease. No indication for dialysis and prognosis is poor. 2. Edema. 3. History of hypertension. 4. Chronic anemia. 5. Altered mentation. 6. Intracranial bleed. No indication for dialysis. Job ID: [id number] [facility]
[2019-12-17] MEDS: Norepinephrine 8 MG in Dextrose 5% in Water 242 ML IVPB SCH (13:01)
--- NOTE | 2019-12-17 15:53 | PDOC.EVN ---
Event Note - Event Note Event Note: Patient still intubated. COVID test result still pending. Family wants to evaluate patient before extubating once COVID result is back. Vitals: BP noted to be 70 systolic GEn: intubated CV: sinus rhythm Lungs: clear per nursing Extremities: no edema This is 74 year old with large intracranial hemorrhage with uncal herniation, CXR: chronic interstitial lung disease. Possible left humerus fracture? Possible RUL infiltrate Doppler US: left upper extremity fistula, no thrombosis Chest X ray: no interval change, s/p extubation CT abdomen: small bilateral pleural effusions. Aspiration pneumonia RLL. Diffuse mural thickening and edema of gallbladder. Anasarca. Small volume ascites CT brain: large volume of acute left supratentorial, subdural, subarachonid and intra-axial hemorrhage. Severe subfalcine herniation, bilateral uncal herniation This is 74 year old male who presented with severe intracranial hemorrhage and fever. #Acute Intracranial hemorrhage #Acute hypoxic respiratory failure secondary to septic shock from pneumonia vs gram negative UTI vs chronic interstitial lung disease #RUL pneumonia #Hyponatremia #ESRD #Leukocytosis #ANemia - on vanc and cefepime. COVID test pending. - rate decreased on ventilator given significant alkalosis - pt has poor prognosis due to herniation. No surgical treatment per neurosurgery. Not candidate for dialysis. Consider terminal extubatio once COVID testing comes back -continue pressors to maintain MAP > 70
--- NOTE | 2019-12-17 17:19 | PDOC.PALFU ---
Palliative Care Follow-up Note Communicated with patient son over the phone, he is MPOA. We discussed poor prognosis with no meaningful recovery. He desires to have his father remain with full resuscitation measures until they are able to see him. Covid results pending. Father Gregor to offer spiritual and emotional support
[2019-12-17] MEDS: Cefepime 0.5 GM, Admixture Fee 1 EACH in Sodium Chloride 0.9% 100 ML IVPB SCH (17:57)
[2019-12-18 02:13] VITALS: BP 108/54
[2019-12-18 03:58] LABS: Band 3 % (5-11); Eosinophils 1 % (0-10); Hemoglobin 9.9 g/dL (14.0-18.0); Hypochromia SLIGHT = 6-15 cells (100X) (0-5/hpf); Lymphocytes 8 % (21-51); MDiff Complete? YES; Mean Corpuscular HGB CONC 31.3 g/dL (32.0-36.0); Mean Corpuscular Hemoglobin 31.4 pg (27.0-31.0); Mean Platelet Volume 8.4 fL (7.4-10.4); Monocytes 2 % (0-10); Neutrophil 86 % (42-75); Platelet Count 262 thou/uL (130-400); Platelet Morphology Comment Appears Adequate; Red Blood Cell (RBC) Count 3.13 mill/uL (4.70-6.10); Target Cells SLIGHT = 2-5 cells (100X) (0-1/hpf); White Blood Cell (WBC) Count 28.6 thou/uL (4.8-10.8)
[2019-12-18 04:00] LABS: Anion Gap 17 mmol/L (10-20); BUN (Urea Nitrogen) 61 mg/dL (8.4-25.7); Calc. Creatinine Clearance 7 mL/min (70-130); Carbon Dioxide 31 mmol/L (23-31); Chloride 94 mmol/L (98-107); Estimated GFR-MDRD 6; Glucose 137 mg/dL (83-110); Potassium 4.6 mmol/L (3.5-5.1); Sodium 137 mmol/L (136-145)
[2019-12-18 04:34] VITALS: BMI 24.7
[2019-12-18 07:52] LABS: Actual Bicarbonate (HCO3a) 33.4 mEq/L (22-28); Calcium, Ionized 1.15 mmol/L (1.12-1.30); Carboxyhemoglobin (COHb) 1.2 gm% (0.0-3.0); Hemoglobin (Hb) 11.5 g/dL (14.0-18.0); Potassium - ABG Lab 4.74 mmol/L (3.70-5.30); pH, Arterial 7.34 (7.35-7.45)
[2019-12-18 07:55] LABS: CO2 Tension 63.8 mmHg (35.0-45.0); Puncture Site RBA
[2019-12-18] MEDS: Norepinephrine 8 MG in Dextrose 5% in Water 242 ML IVPB SCH (08:04)
[2019-12-18] MEDS: Famotidine/PF 20 mg/2ml Vial SLOW IVP SCH (08:06)
--- NOTE | 2019-12-18 09:21 | RAD ---
PORTABLE CHEST: Date: 12/18/2019 PROVIDED CLINICAL HISTORY: Pneumonia. FINDINGS: Comparison with 12/17/2019. Significant interval change with respect to the prior examination is not apparent. IMPRESSION: As above. POS: ELVIN
[2019-12-18 12:10] VITALS: TEMP 99.5
--- NOTE | 2019-12-18 13:56 | PRG ---
DATE OF SERVICE: 12/18/2019 SUBJECTIVE: The patient is seen in ICU. No family members available. OBJECTIVE: GENERAL: This is an elderly male, intubated. VITAL SIGNS: Temperature 99.5, pulse 70, respiratory rate 12, blood pressure 99/40. HEENT: Intubated. LABORATORY DATA: Potassium 4.2, BUN is 61, and creatinine is 8.4. ASSESSMENT AND PLAN: 1. End-stage renal disease. No acute indication for dialysis. 2. Edema. 3. History of hypertension. 4. Chronic anemia. 5. Altered mentation with intracranial bleed. 6. Prognosis guarded. No acute indication for dialysis. Job ID: [id number]
--- NOTE | 2019-12-18 14:53 | PRG ---
DATE OF SERVICE: 12/18/2019 SUBJECTIVE: Mr. Maurice remains on ventilatory support. At this time, he is not assisting the ventilator. He has not shown any evidence of neurologic recovery. His family is gathering possibly to discuss the end of life care. PHYSICAL EXAMINATION: VITAL SIGNS: Blood pressure is 99/48, heart rate is 70. He has 100% oxygen saturation on the ventilator with FiO2 of 0.4. GENERAL: He is intubated. He is not making any spontaneous respiratory efforts. HEENT: Pupils are midposition and nonreactive. I cannot elicit a blink. NECK: He has no JVD. LUNGS: Clear. HEART: Regular rate and rhythm. He does have a pacemaker via the left subclavian approach. ABDOMEN: Soft. There is no organomegaly. EXTREMITIES: Showed no edema. NEUROLOGIC: Shows pupils are nonreactive. He does not have a blink. I elicit no withdrawal to pain. He has a nonreactive Babinski. Extremities are flaccid. LABORATORY DATA: White count is 28,600, hemoglobin is 9.9, platelet count 262,000. He has 86 neutrophils and 3 bands. Blood gas includes pH 7.34, CO2 of 64, PO2 of 85, bicarbonate 33. Electrolytes include sodium 137, potassium 4.6, chloride 94, CO2 of 31, BUN 61, creatinine 8.4, glucose is between 150 and 175. IMPRESSION: 1. Large intracranial bleed including multiloculated left temporofrontal subdural hematoma, large amount of subarachnoid hemorrhage, large left temporal lobe hematoma. There is significant shift. Ventricles are extremely distorted. There is no cerebellar tonsillar herniation at least on the CAT scan of 12/15/2019. At this point, the patient neurologically is not responding to any stimuli. He is not triggering the ventilator. I have requested [employer] perfusion study and we will see if there is evidence of ongoing brain perfusion. 2. Renal failure, not a candidate for hemodialysis. PLAN: [employer] perfusion study is requested and pending at this time. Based on results, I will have conversation with the family regarding the next step. At this point, it seems as though significant recovery is extremely unlikely. Job ID: [id number]
[2019-12-18 15:23] LABS: Vancomycin, Random 11.2 ug/mL (See Comment)
--- NOTE | 2019-12-18 15:30 | PDOC.EVN ---
Event Note - Event Note Event Note: This is 74 year old male who presented with severe intracranial hemorrhage and fever. #Acute Intracranial hemorrhage #Acute hypoxic respiratory failure secondary to septic shock from pneumonia vs gram negative UTI vs chronic interstitial lung disease #RUL pneumonia #Hyponatremia #ESRD #Leukocytosis #ANemia - on vanc and cefepime. COVID test pending. - rate decreased on ventilator given significant alkalosis - pt has poor prognosis due to herniation. No surgical treatment per neurosurgery. Not candidate for dialysis. Consider terminal extubatio once COVID testing comes back due to minimize the risk of COVID exposure, pt peripherally followed.
--- NOTE | 2019-12-18 15:40 | PRG ---
DATE OF SERVICE: 12/18/2019 Mr. Maurice has completed brain perfusion study, which shows no evidence of cerebral perfusion. This is consistent with brain . On the basis of the report showing an absence of perfusion, the patient is pronounced effective 2:42 p.m. Family has been notified and will come to the hospital for conversation. Job ID: [id number]
--- NOTE | 2019-12-18 16:58 | PRG ---
DATE OF SERVICE: 12/18/2019 I have reviewed the brain perfusion study with the patient's family and have informed them of his clinical significance. I have told him that he is pronounced at 2:42 p.m., effective the time of the reporting of that study. They are going to visit briefly with him and then pursue extubation. The patient is not a candidate for any organ donation. Job ID: [id number]
--- NOTE | 2019-12-19 18:25 | DIS ---
DATE OF ADMISSION: 12/15/2019 DATE OF DISCHARGE: 12/18/2019 DISCHARGE DIAGNOSES: 1. Massive left-sided intracranial hemorrhage including left supratentorial subdural hematoma, subarachnoid hematoma, and intraparenchymal hemorrhage with significant mass effect and uncal herniation. 2. Acute hypoxic respiratory failure. 3. Sepsis, probably secondary to cellulitis of the left upper extremity as well as respiratory dysfunction. 4. Coagulopathy with supratherapeutic INR. 5. End-stage renal disease, on hemodialysis. 6. Acute urinary tract infection. 7. Type 2 diabetes mellitus. 8. Hyperlipidemia. 9. Hypertension. MEDICATIONS: None. HOSPITAL COURSE: This is a 74-year-old male, admitted with intracranial bleed as mentioned above with uncal herniation. He was intubated initially and followed the in the ICU settings, including change in the ventilator settings and Bear Hugger. Palliative Care followed with us. He had a worse prognosis overall. He was ruled out for COVID-19. We did a brain flow nuclear medicine, which showed brain at 2:42 p.m. He had a pacer that was turned off and his brain was at 2:42 p.m. and his cardiac demise declared at 5:20 p.m. Between those time, he was extubated. PRIMARY CAUSES OF DEMISE: 1. Intracranial hemorrhage with uncal herniation. 2. Cardiovascular collapse. 3. Supratherapeutic INR with coagulopathy. Job ID: [id number] MTDD
--- NOTE | 2019-12-20 07:12 | NM ---
Radionucleotide cerebral blood flow study for brain HISTORY: Brain . FINDINGS: Blood flow images show uptake within the nasopharyngeal mucosa and vascular structures. No intracranial cerebral uptake evident. There is paucity of intracranial uptake on the delayed images. IMPRESSION : Absence of cerebral blood flow.
--- NOTE | 2019-12-21 05:20 | PQF ---
[employer] Crystal Reports [employer] DemiGABRIEL JAY SOUNDARI [id number] [place] [id number] CLINICAL DOCUMENTATION CLARIFICATION FORM: POST DISCHARGE Addendum to original discharge summary date: ____ Late entry note date: __ DATE: 12/21/19 ATTN: Bernadette Pruett Please exercise your independent, professional judgment in responding to the clarification form. Clinical indicators are provided on the bottom of this form for your review In your clinical opinion based on clinical findings below, can you please clarify the patient's reason for inpatient admission, if due to: Please check appropriate box(s): [ ] Sepsis [ ] Nontraumatic Intracranial Hemorrhage [ x] Traumatic Intracranial hemorrhage [ ] Other diagnosis [ ] Unable to determine In addition, please specify: Present on Admission (POA): [ ] Yes [ ] No [ ] Unable to determine For continuity of documentation, please document condition throughout progress notes and discharge summary. Thank You. CLINICAL INDICATORS - SIGNS / SYMPTOMS / LABS H and P pg.2- CT Gregor Massive intracranial bleed H and P pg.1- Chief complaint: Fever and left arm swelling H and P pg.1- presents to ER with generalized weakness, has been progressing over the last week DS pg.1- Massive left sided intracranial hemorrhage DS pg.1- Sepsis probably secondary to cellulitis of the upper extremity RISK FACTORS ESRD- H and P pg.1 DM2-H and P pg.1 Hyperlipidemia -H and P pg.1 Hypertension-H and P pg.1 Acute hypoxic respiratory failure- H and P pg.1 Acute UTI H and P pg.1 74 years old- Hand P pg.1 TREATMENTS: Chest X ray 12/14 Vascular Ultrasound 12/14 Brain flow nuclear Med- 12/17 Pulmonary Consult- Dr. Sahu Neurology Consult Dr. Guerrero O2 Supplementation Neuro Monitoring IV fluids- MAR IV Antibiotics- MAR (This form is maintained as a part of the permanent medical record) 2014 [employer] All Rights Reserved [email or web address]
--- NOTE | 2019-12-21 13:27 | EKG ---
Test Reason : Blood Pressure : / mmHG Vent. Rate : 089 BPM Atrial Rate : 089 BPM P-R Int : 140 ms QRS Dur : 138 ms QT Int : 422 ms P-R-T Axes : 030 -55 095 degrees QTc Int : 513 ms Electronic ventricular pacemaker Confirmed by SHARIFA LINO DO ([id number]), commissioning editor OZZY MOYA ([id number]) on 12/21/2019 1:27:27 PM Referred By: Confirmed By:SHARIFA LINO DO
== END 2019-12-18 14:42 | disposition expired | DRG 85 ==
LOC: ERS 17:23 → CCU 19:57
PROVIDERS: ADMIT Internal Medicine; ATTEND Internal Medicine
PROC: 0BH17EZ Insertion of Endotracheal Airway into Trachea, Via Natural or Artificial Opening (ICD-10-PCS; principal; 2019-12-15)
PROC: 5A1945Z Respiratory Ventilation, 24-96 Consecutive Hours (ICD-10-PCS; 2019-12-15)
PROC: 30283B1 Transfusion of Nonautologous 4-Factor Prothrombin Complex Concentrate into Vein, Percutaneous Approach (ICD-10-PCS; 2019-12-15)
PROC: 8E0ZXY6 Isolation (ICD-10-PCS; 2019-12-15)
PROC: 5A1D70Z Performance of Urinary Filtration, Intermittent, Less than 6 Hours Per Day (ICD-10-PCS; 2019-12-16)
DX: S06.5X0A Traumatic subdural hemorrhage without loss of consciousness, initial encounter (principal); A41.9 Sepsis, unspecified organism; R65.21 Severe sepsis with septic shock; J96.01 Acute respiratory failure with hypoxia; N18.6 End stage renal disease; J18.9 Pneumonia, unspecified organism; G93.5 Compression of brain; I42.9 Cardiomyopathy, unspecified; E87.1 Hypo-osmolality and hyponatremia; L03.114 Cellulitis of left upper limb; I12.0 Hypertensive chronic kidney disease with stage 5 chronic kidney disease or end stage renal disease; N39.0 Urinary tract infection, site not specified; D68.9 Coagulation defect, unspecified; S06.6X0A Traumatic subarachnoid hemorrhage without loss of consciousness, initial encounter; S06.360A Traumatic hemorrhage of cerebrum, unspecified, without loss of consciousness, initial encounter; R40.2314 Coma scale, best motor response, none, 24 hours or more after hospital admission; R40.2114 Coma scale, eyes open, never, 24 hours or more after hospital admission; I25.10 Atherosclerotic heart disease of native coronary artery without angina pectoris; E11.22 Type 2 diabetes mellitus with diabetic chronic kidney disease; E78.5 Hyperlipidemia, unspecified; B96.89 Other specified bacterial agents as the cause of diseases classified elsewhere; W19.XXXA Unspecified fall, initial encounter; E87.70 Fluid overload, unspecified; D63.1 Anemia in chronic kidney disease; E78.00 Pure hypercholesterolemia, unspecified; Z95.810 Presence of automatic (implantable) cardiac defibrillator; Z99.2 Dependence on renal dialysis; Z79.82 Long term (current) use of aspirin; Z79.899 Other long term (current) drug therapy; Z79.02 Long term (current) use of antithrombotics/antiplatelets; Z78.1 Physical restraint status
CPT/HCPCS: 31500; 36415; 36416; 51701; 70450; 71045; 74177; 78610; 80048; 80053; 80202; 81003; 81015; 82550; 82553; 82805; 83605; 84484; 85007; 85025; 85027; 85610; 85730; 86160; 87040; 87077; 87086; 87186; 87340; 87633; 87804; 93005; 94002; 94003; 96361; 96365; 96366; 96367; 96368; 96375; 99292; A9521; C9132; J0692; J2704; J3010; J3370; J3430; J3490; J7070; J7799; Q9967; S0028; U0001